=== PATIENT | male | born 1975 | race Caucasian/White ===

== ENCOUNTER 2016-12-01 20:29 | Emergency (ER) | payer BC ==
--- NOTE | 2016-12-03 14:26 | ER ---
ADMIT: 12/01/2016 RM/LOC: ER [facility] MR#: [id number] [facility] [address] [place], [place] [id number] [facility]SC[facility] REINALDOARIAN[facility] [facility] [address] [place] [address] Emergency Room Report SEX: M AGE: 41 : 1975 DATE: 12/01/2016 ADDENDUM: CHIEF COMPLAINT: Swollen finger. HISTORY OF PRESENT ILLNESS: This is a 41-year-old male, who has had a swollen finger that started just this last Wednesday, then worsened yesterday, today it started draining. He has been doing warm soaks to continue to have it drain. I am sending him home on Keflex and Bactrim, both for 7 days having him followup if worsen. CLINICAL IMPRESSION: Cellulitis to the right 4th proximal finger. FELIPE Carrillo / Jairo Suh MD / whit JOB #: [id number] CC: Jairo Suh MD, Attending Physician UNKNOWN, Family Physician
== END 2016-12-01 21:55 | disposition home or self-care (01) ==
LOC: ER 20:29
DX: L03.011 Cellulitis of right finger (principal); Z98.890 Other specified postprocedural states